=== PATIENT | male | born 1985 | race African-American/Black ===

== ENCOUNTER 2021-07-09 20:32 | Emergency (ER) | payer OTHER ==
[~2021-07-09] VITALS: Ht 177.8 cm; Wt 97.0 kg
[~2021-07-09 20:32] MED LIST: MOTRIN40 MG/ML OR; TOBRAMYCIN0.3 % OP
[2021-07-09] MEDS ORDERED: AMOXICILLIN500 MG PO (22:07)
[2021-07-09 22:17] VITALS: BP 148/104
== END 2021-07-09 22:25 | disposition home or self-care (01) | DRG 605 ==
LOC: ED 20:32
PROC: 0HQMXZZ Repair Right Foot Skin, External Approach (ICD-10-PCS; principal; 2021-07-09)
DX: S91.311A Laceration without foreign body, right foot, initial encounter (principal); W27.2XXA Contact with scissors, initial encounter